=== PATIENT | female | born 1980 | race Caucasian/White ===

== ENCOUNTER 2020-03-30 09:29 | Outpatient (REF) | payer OTHER, SELFPAY ==
[2020-03-30 14:31] LABS: CT PCR NOT DETECTED (Not Detect.); NG PCR NOT DETECTED (Not Detect.)
[2020-03-31 13:20] LABS: BV Int Neg Control Negative (Negative); BV Int Pos Control Positive (Positive)
== END 2020-03-30 09:30 | disposition home or self-care (01) ==
LOC: HO.LAB 09:29
PROVIDERS: Visit Provider Obstetrics & Gynecology
DX: Z01.419 Encounter for gynecological examination (general) (routine) without abnormal findings (principal); Z11.8 Encounter for screening for other infectious and parasitic diseases; Z11.3 Encounter for screening for infections with a predominantly sexual mode of transmission
CPT/HCPCS: 87480; 87491; 87510; 87591; 87660

== ENCOUNTER 2021-03-02 10:53 | Outpatient (REF) | payer OTHER, SELFPAY ==
[2021-03-02 14:01] LABS: Appearance Urine HAZY; Color Urine YELLOW; Glucose Urine UA NEG (NEG); Leukocyte Esterase Urine NEG (NEG); Nitrite Urine NEG (NEG); PH 7.5 (5.0-8.0); Urine Blood TRACE (NEG); Urine Ketones NEG (NEG); Urine Protein NEG (NEG-TRACE)
[2021-03-02 14:06] LABS: Hematocrit 39.8 % (37.0-47.0); Hemoglobin 12.9 g/dl (12.0-16.0); Mean Corpuscular HGB Conc 32.4 g/dl (31.0-35.0); Mean Corpuscular Hemoglobin 27.6 pg (27.0-33.0); Mean Corpuscular Volume 85.2 fL (80.0-98.0); Mean Platelet Volume 9.9 fL (9.4-12.3); Platelet Count 341 X10*3/uL (160-400); Red Blood Count 4.67 X10*6/uL (4.20-5.50); Red Cell Distribution Width 14.8 % (11.0-16.0); White Blood Count 9.1 X10*3/uL (4.8-10.8)
[2021-03-02 14:12] LABS: Mucus Urine 2+ /LPF; Squamous Epithelial Cell Urine 1+ /LPF; WBC Urine 0 /HPF (0-4)
[2021-03-02 14:47] LABS: Alanine Aminotransferase 13 U/L (0-31); Albumin Level 4.4 g/dL (3.5-5.0); Alkaline Phosphatase 52 U/L (39-117); Anion Gap 11 (12-20); Aspartate Amino Transferase 19 U/L (5-31); Bilirubin Direct 0.2 mg/dL (0.0-0.5); Bilirubin Total 0.6 mg/dL (0.0-1.0); Blood Urea Nitrogen 13 mg/dL (9-16); Calcium 9.2 mg/dL (8.4-10.2); Carbon Dioxide 27 mmol/L (22-29); Chloride 107 mmol/L (96-108); Cholesterol 181 mg/dL; Estimated Glomerular Filt Rate > 60; Glucose Random 85 mg/dL (60-115); HDL Cholesterol 55 mg/dL; LDL Cholesterol Calculated 112 mg/dl; Potassium 3.9 mmol/L (3.3-5.1); Sodium 141 mmol/L (135-145); Total Protein 7.4 g/dL (6.5-8.0); Triglycerides 72 mg/dL
[2021-03-02 15:10] LABS: Thyroid Stimulating Hormone 1.23 uIU/mL (0.32-4.0)
== END 2021-03-02 10:54 | disposition home or self-care (01) ==
LOC: HO.HMGCLDS 10:53
PROVIDERS: PCP Internal Medicine; Visit Provider Internal Medicine
DX: F41.9 Anxiety disorder, unspecified (principal)
CPT/HCPCS: 36415; 80048; 80061; 80076; 81001; 81003; 84443; 85027

== ENCOUNTER 2021-03-31 09:01 | Outpatient (REF) | payer OTHER, SELFPAY ==
[2021-04-01 10:16] LABS: BV Int Neg Control Negative (Negative); BV Int Pos Control Positive (Positive)
== END 2021-03-31 09:02 | disposition home or self-care (01) ==
LOC: HO.LAB 09:01
PROVIDERS: PCP Internal Medicine; Visit Provider Advanced Practice Midwife
DX: Z01.411 Encounter for gynecological examination (general) (routine) with abnormal findings (principal); N89.8 Other specified noninflammatory disorders of vagina
CPT/HCPCS: 87480; 87510; 87660

== ENCOUNTER 2021-05-05 13:35 | Outpatient (REF) | payer OTHER, SELFPAY ==
--- NOTE | ~2021-05-05 | MM_ITS ---
EXAMINATION: MM SCREENING DIGITAL BREAST TOMOSYNTHESIS, BILATERAL CLINICAL INFORMATION: Screening. Asymptomatic. The lifetime risk of breast cancer based on the Tyrer-Cuzick Model is 15%. COMPARISON: Mammography: 01/09/2020, 01/02/2020, 03/15/2016, 07/30/2015 TECHNIQUE: Digital breast tomosynthesis is performed in both the craniocaudal and mediolateral oblique views along with computer-aided detection (CAD). Synthesized 2D images are generated from the tomosynthesis. FINDINGS: The breasts are heterogeneously dense, which may obscure small masses (ACR BI-RADS breast composition Category c). There are no significant masses, abnormal calcifications, or other abnormalities. There are scattered round and rim calcifications again seen. The axilla and skin contours are unremarkable. No developing density or architectural abnormality. No significant changes. MM/MM tomosynthesis screening BI IMPRESSION: No mammographic evidence of malignancy. ASSESSMENT: BI-RADS 2: Benign RECOMMENDATION: Routine annual mammography screening. This patient's information was entered into a reminder system with a target due date for their next mammogram.
== END 2021-05-05 13:36 | disposition home or self-care (01) ==
LOC: HO.MAMMO 13:35
PROVIDERS: Visit Provider Advanced Practice Midwife
DX: Z12.31 Encounter for screening mammogram for malignant neoplasm of breast (principal)
CPT/HCPCS: 77063; 77067

== ENCOUNTER 2021-08-17 08:47 | Outpatient (REF) | payer OTHER, SELFPAY ==
[2021-08-17 11:41] LABS: Appearance Urine HAZY; Color Urine YELLOW; Glucose Urine UA NEG (NEG); Leukocyte Esterase Urine NEG (NEG); Nitrite Urine NEG (NEG); UACC Culture Trigger NO; Urine Blood TRACE (NEG); Urine Ketones NEG (NEG); Urine Protein NEG (NEG-TRACE)
[2021-08-17 12:15] LABS: Alanine Aminotransferase 14 U/L (0-31); Albumin Level 3.7 g/dL (3.5-5.0); Alkaline Phosphatase 43 U/L (39-117); Anion Gap 10 (12-20); Aspartate Amino Transferase 18 U/L (5-31); Bilirubin Total 0.3 mg/dL (0.0-1.0); Blood Urea Nitrogen 10 mg/dL (9-16); Carbon Dioxide 27 mmol/L (22-29); Chloride 104 mmol/L (96-108); Cholesterol 182 mg/dL; Estimated Glomerular Filt Rate > 60; Glucose Fasting 94 mg/dL (60-99); HDL Cholesterol 52 mg/dL; LDL Cholesterol Calculated 117 mg/dl; Potassium 4.1 mmol/L (3.3-5.1); Sodium 137 mmol/L (135-145); Total Protein 6.5 g/dL (6.5-8.0); Triglycerides 65 mg/dL
[2021-08-17 12:17] LABS: TSH reflex Free T4 1.11 uIU/mL (0.32-4.0)
[2021-08-17 12:52] LABS: Amorphous Sediment Urine 2+ /LPF; Mucus Urine 1+ /LPF; Squamous Epithelial Cell Urine 1+ /LPF; WBC Urine 0 /HPF (0-4)
== END 2021-08-17 08:48 | disposition home or self-care (01) ==
LOC: HO.HMGCLDS 08:47
PROVIDERS: PCP Nurse Practitioner Family; Visit Provider Nurse Practitioner Family
DX: F41.9 Anxiety disorder, unspecified (principal)
CPT/HCPCS: 36415; 80053; 80061; 81001; 81003; 84443

== ENCOUNTER 2021-11-29 14:25 | Outpatient (REF) | payer OTHER, SELFPAY ==
[2021-11-30 17:12] LABS: CT PCR NOT DETECTED (Not Detect.); NG PCR NOT DETECTED (Not Detect.)
[2021-12-01 11:03] LABS: BV Int Neg Control Negative (Negative); BV Int Pos Control Positive (Positive)
== END 2021-11-29 14:26 | disposition home or self-care (01) ==
LOC: HO.LAB 14:25
PROVIDERS: Visit Provider Advanced Practice Midwife
DX: Z11.3 Encounter for screening for infections with a predominantly sexual mode of transmission (principal); N93.9 Abnormal uterine and vaginal bleeding, unspecified
CPT/HCPCS: 87480; 87491; 87510; 87591; 87660

== ENCOUNTER 2021-12-09 12:57 | Outpatient (REF) | payer OTHER, SELFPAY ==
--- NOTE | ~2021-12-09 | XR_ITS ---
EXAMINATION: XR FOOT, LEFT CLINICAL INFORMATION: Injury left foot COMPARISON: None TECHNIQUE: AP, lateral, and oblique views of the left foot. FINDINGS: There is a fracture at the base of the proximal phalanx first digit. Occurring along the medial aspect. Fracture line communicates with the MTP joint. Minimal distraction of the fracture fragment. Oblique in nature. Some spurring at the insertion of the plantar aponeuroses and Achilles on the calcaneus XR/XR foot LT min 3V IMPRESSION: Fracture minimally displaced at the base of the proximal phalanx medial aspect at the level the MTP joint first digit
== END 2021-12-09 12:58 | disposition home or self-care (01) ==
LOC: HO.HMGCX 12:57
PROVIDERS: PCP Nurse Practitioner Family; Visit Provider Internal Medicine
DX: S99.922A Unspecified injury of left foot, initial encounter (principal)
CPT/HCPCS: 73630

== ENCOUNTER 2022-01-13 15:53 | Outpatient (REF) | payer OTHER, SELFPAY | END 2022-01-13 15:54 | disposition home or self-care (01) | LOC: HO.US 15:53 | PROVIDERS: Visit Provider Advanced Practice Midwife | DX: Z13.89 Encounter for screening for other disorder (principal) ==

== ENCOUNTER 2022-06-22 08:31 | Outpatient (REF) | payer OTHER, SELFPAY ==
[2022-06-22 11:13] LABS: MANUAL DIFF FLAG NO
[2022-06-22 11:22] LABS: Basophils Absolute Auto 0.1 X10*3/uL (0.0-0.2); Basophils Percent Auto 0.9 % (0-2); Eosinophils Absolute Auto 0.1 X10*3/uL (0.0-0.4); Eosinophils Percent Auto 1.1 % (0-4); Hemoglobin 11.6 g/dl (12.0-16.0); Imm Gran Abs Auto 0.02 X10*3/uL (0.00-0.03); Imm Gran Pct Auto 0.2 % (0.0-0.4); Lymphocytes Absolute Auto 2.2 X10*3/uL (1.2-4.9); Lymphocytes Percent Auto 26.6 % (20-40); Mean Corpuscular HGB Conc 32.2 g/dl (31.0-35.0); Mean Corpuscular Hemoglobin 26.9 pg (27.0-33.0); Mean Corpuscular Volume 83.3 fL (80.0-98.0); Mean Platelet Volume 9.9 fL (9.4-12.3); Monocytes Absolute Auto 0.5 X10*3/uL (0.1-1.2); Monocytes Percent Auto 5.8 % (2-11); Neutrophils Absolute Auto 5.3 x10*3/uL (2.0-8.3); Neutrophils Percent Auto 65.4 % (45-73); Platelet Count 370 X10*3/uL (160-400); Red Blood Count 4.32 X10*6/uL (4.20-5.50); Red Cell Distribution Width 15.8 % (11.0-16.0); White Blood Count 8.2 X10*3/uL (4.8-10.8)
[2022-06-22 11:34] LABS: Appearance Urine Clear; Color Urine Yellow; Glucose Urine UA Negative (Negative); Leukocyte Esterase Urine Negative (Negative); Nitrite Urine Negative (Negative); PH 7.5 (5.0-9.0); Urine Blood Negative (Negative); Urine Ketones Negative (Negative); Urine Protein Negative (Neg-Trace)
[2022-06-22 11:50] LABS: Alanine Aminotransferase 17 U/L (0-31); Albumin Level 3.8 g/dL (3.5-5.0); Alkaline Phosphatase 47 U/L (39-117); Anion Gap 11 (12-20); Aspartate Amino Transferase 22 U/L (5-31); Bilirubin Total 0.3 mg/dL (0.0-1.0); Blood Urea Nitrogen 8 mg/dL (9-16); Calcium 8.7 mg/dL (8.4-10.2); Carbon Dioxide 27 mmol/L (22-29); Chloride 107 mmol/L (96-108); Cholesterol 199 mg/dL; Estimated Glomerular Filt Rate > 60; Glucose Fasting 101 mg/dL (60-99); HDL Cholesterol 56 mg/dL; LDL Cholesterol Calculated 131 mg/dl; Potassium 4.1 mmol/L (3.3-5.1); Sodium 141 mmol/L (135-145); Total Protein 6.5 g/dL (6.5-8.0); Triglycerides 60 mg/dL
[2022-06-22 11:53] LABS: TSH reflex Free T4 0.82 uIU/mL (0.32-4.0)
== END 2022-06-22 08:32 | disposition home or self-care (01) ==
LOC: HO.HMGCLDS 08:31
PROVIDERS: PCP Nurse Practitioner Family; Visit Provider Nurse Practitioner Family
DX: Z00.00 Encounter for general adult medical examination without abnormal findings (principal)
CPT/HCPCS: 36415; 80053; 80061; 81003; 84443; 85025

== ENCOUNTER 2022-10-07 08:31 | Outpatient (REF) | payer OTHER, SELFPAY ==
[2022-10-07 11:40] LABS: Baso%MD 0.6 %; Eos%MD 2.8 %; Hematocrit 35.7 % (37.0-47.0); Hemoglobin 11.5 g/dl (12.0-16.0); IG%MD 0.1 %; Immature Retic Fraction 11.9 % (3.0-15.9); Lymph%MD 28.8 %; Mean Corpuscular HGB Conc 32.2 g/dl (31.0-35.0); Mean Corpuscular Hemoglobin 27.1 pg (27.0-33.0); Mean Corpuscular Volume 84.2 fL (80.0-98.0); Mean Platelet Volume 9.8 fL (9.4-12.3); Mono%MD 5.7 %; Platelet Count 358 X10*3/uL (160-400); Red Blood Count 4.24 X10*6/uL (4.20-5.50); Red Cell Distribution Width 14.9 % (11.0-16.0); Retic HGB Equivalent 33.4 pg (30.0-35.0); Reticulocyte Percent 1.4 % (0.5-1.8); White Blood Count 7.9 X10*3/uL (4.8-10.8)
[2022-10-07 12:01] LABS: Iron 36 mcg/dL (30-160); Percent Iron Saturation 11 % (15-50); Total Iron Binding Capacity 326 mcg/dL (228-428); Unsaturated Iron Binding 290 ug/dL
[2022-10-07 12:34] LABS: Basophils Abs Manual 0.2 X10*3/uL (0.0-0.2); Basophils Percent Manual 2 % (0-2); Eosinophils Absolute Manual 0.2 X10*3/uL (0.0-0.4); Eosinophils Percent Manual 2 % (0-4); Lymphocytes Absolute Manual 2.3 X10*3/uL (1.2-4.9); Lymphocytes Percent Manual 29 % (20-40); Monocytes Absolute Manual 0.4 X10*3/uL (0.1-1.2); Monocytes Percent Manual 5 % (2-11); Neutrophils Percent Manual 62 % (45-73)
[2022-10-07 12:36] LABS: Band Neutrophils Percent 0 % (3-5); Neutrophils Absolute Manual 4.9 X10*3/uL (2.0-8.3); Platelet Estimate NORMAL (NORMAL); Platelet Morphology Comment NORMAL; RBC Morphology NORMAL
[2022-10-07 12:45] LABS: Ferritin 12 ng/mL (10-250); Folate 8.9 ng/mL (> or = 4.0); Vitamin B12 603 pg/mL (200-900)
== END 2022-10-07 08:32 | disposition home or self-care (01) ==
LOC: HO.HMGCLDS 08:31
PROVIDERS: PCP Nurse Practitioner Family; Visit Provider Nurse Practitioner Family
DX: D64.9 Anemia, unspecified (principal)
CPT/HCPCS: 36415; 82607; 82728; 82746; 83540; 85007; 85027; 85045

== ENCOUNTER 2023-08-01 11:30 | Outpatient (AMB) | payer OTHER, SELFPAY ==
[2023-08-01 11:54] VITALS: BP 120/76; PULSE 83; TEMP 36.7; O2SAT 96; BMI 25.6
--- NOTE | 2023-08-01 11:54 | AM.OFFWIN_ITS ---
Intake Vital Signs 08/01/23 11:54 Height 5 ft 5 in Weight 154 lb BMI 25.6 BP 120/76 Blood Pressure Location Lt brachial Position Sitting Pulse 83 Pulse Source Pulse Oximeter Temp 98.1 F Temp Source Temporal Artery Scan Pulse Oximetry (%) 96 Oxygen Delivery Method Room Air Intake Visit Reasons: EP Stomach pain Intake Note: pt is here today for stomach pain started 1 month ago Patient Tobacco Use Status: Never used Tobacco Allergies No Known Allergies Allergy (Verified 08/01/23 11:57) Medication List - Last Reconciled 08/01/23 by HYACINTH Lantigua escitalopram oxalate 10 mg PO DAILY 90 days Do you need a note to return to daycare/school/sports/work: Yes HPI HPI Comments History of Present Illness Details 42-year-old female presents today compla ining of dysuria lower abdominal pain, increasing stress and fatigue. Her appointment with the PCP was postponed and she is quite upset and anxious about the [facility] Medical History Generalized anxiety disorder Right ovarian cyst Surgical History History of left oophorectomy History of ovarian cystectomy Family History Family/Other Breast cancer genetic susceptibility Mother Rheumatoid arthritis Asthma Father Hypertension Family/Other Breast cancer Social History Housing: House Alcohol intake: never Patient Tobacco Use Status: Never used Tobacco e-Cigarette/Vaping Use: Never Used Second Hand Smoke Exposure: No service: No Current occupational status: employed Current occupation: [employer] Current occupational exposures/hazards: No Gender identity: Female Cognitive needs: No Hearing needs: No Vision needs: No Female Reproductive History Menstrual Age of Menarche: 10 Review of Systems Const Reports anorexia, Reports body aches, Reports chills, Reports headache(s) and Reports lethargy Eyes Reports no additional complaints ENT Reports Normal hearing present and Reports headache(s) Card Reports no additional complaints Neuro Reports Normal hearing present and Reports headache(s) Physical Exam Vital Signs: Last Vital Signs Temp 98.1 F 08/01/23 11:54 Pulse 83 08/01/23 11:54 BP 120/76 08/01/23 11:54 Pulse Ox 96 08/01/23 11:54 Oxygen Delivery Method Room Air 08/01/23 11:54 BMI result Body Mass Index 25.6 Const General: acute distress mild and anxious HEENT Head: Yes normal to inspection, Yes normocephalic and Yes atraumatic Ears: hearing grossly normal bilaterally, external ears normal, TM's normal bilaterally and EAC's normal General nose exam: Normal external nose present Face and sinus: Yes normal facial exam and Yes sinuses nontender Throat: Yes posterior oropharynx normal Resp Effort & Inspection: normal respiratory effort Auscultation: clear to auscultation bilaterally Cardio Rate: tachycardic Rhythm: regular rhythm GI Inspection: Yes normal to inspection Percussion: Yes normal to percussion Auscultation: normal bowel sounds Neuro Cranial nerves: Yes Normal hearing present Results AMB Test Urine AMB Test Urine Negative Last Edit by Yossi Blunt CMA on 08/01/23 12:35 AMB Urinalysis, Automated UA Leukoctes 0 Rambo/uL Last Edit by Yossi Blunt CMA on 08/01/23 12:36 UA Nitrite Negative Last Edit by Yossi Blunt CMA on 08/01/23 12:36 UA Urobilinogen 0.2 mg/dL Last Edit by Yossi Blunt CMA on 08/01/23 12 :36 UA Protein 15 mg/dL Last Edit by Yossi Blunt CMA on 08/01/23 12:36 UA pH 7.0 Last Edit by Yossi Blunt CMA on 08/01/23 12:36 UA Blood 80 Tyree/uL Last Edit by Yossi Blunt CMA on 08/01/23 12:36 UA Specific Peterson 1.015 Last Edit by Yossi Blunt CMA on 08/01/23 12:36 UA Ketone Negative Last Edit by Yossi Blunt CMA on 08/01/23 12:36 UA Bilirubin 0 mg/dL Last Edit by Yossi Blunt CMA on 08/01/23 12:36 UA Glucose 0 mg/dL Last Edit by Yossi Blunt CMA on 08/01/23 12:36 Results Reviewed Results Reviewed: Laboratory Last Values Urine pH (Auto) 7.0 08/01/23 12:34 Specific Peterson (Auto) 1.015 08/01/23 12:34 Urine Protein (Auto) 15 mg/dL 08/01/23 12:34 Glucose (UA)(Auto) 0 mg/dL 08/01/23 12:34 Urine Ketones (Auto) Negative 08/01/23 12:34 Urine Blood (Auto) 80 Tyree/uL 08/01/23 12:34 Urine Nitrite (Auto) Negative 08/01/23 12:34 Urine Bilirubin (Auto) 0 mg/dL 08/01/23 12:34 Urine Urobilinogen (Auto) 0.2 mg/dL 08/01/23 12:34 Leukocyte Esterase (Auto) 0 Rambo/uL 08/01/23 12:34 Tst Clinic Negative 08/01/23 12:34 Discussed the results of her urinalysis and with her symptom will treat her for UTI Assessment & Plan Assessment & Plan (1) Fatigue: Code(s): R53.83 - Other fatigue Plan: She will take cephalexin for the UTI. And also I encouraged her to follow up with her PCP and may consider CT scan of the abdomen for further follow up on her multiple complaints. Orders: Orders AMB Urinalysis Automated Today Z13.9 - Encounter for screening, unspecified AMB HCG Urine Test Today Z13.9 - Encounter for screening, unspecified Complete Blood Count Auto Diff Today R53.83 - Other fatigue Comprehensive Met. Panel Today R53.83 - Other fatigue Medications: New cephalexin 500 mg PO BID 14 caps 0RF 7 days Coding Level of Care Code Est Pt Level 3 (93769) Diagnoses Fatigue R53.83
== END 2023-08-01 13:16 | disposition home or self-care (01) ==
PROVIDERS: PCP Nurse Practitioner Family; Visit Provider Physician Assistant Medical
DX: R53.83 Other fatigue (principal); R30.0 Dysuria; Z32.02 Encounter for pregnancy test, result negative
CPT/HCPCS: 81003; 81025; 99213

== ENCOUNTER 2023-08-01 12:50 | Outpatient (REF) | payer OTHER, SELFPAY ==
[2023-08-01 16:20] LABS: MANUAL DIFF FLAG NO
[2023-08-01 16:30] LABS: Basophils Absolute Auto 0.1 X10*3/uL (0.0-0.2); Basophils Percent Auto 0.7 % (0-2); Eosinophils Absolute Auto 0.1 X10*3/uL (0.0-0.4); Eosinophils Percent Auto 0.7 % (0-4); Hematocrit 39.2 % (37.0-47.0); Hemoglobin 12.6 g/dl (12.0-16.0); Imm Gran Abs Auto 0.03 X10*3/uL (0.00-0.03); Imm Gran Pct Auto 0.4 % (0.0-0.4); Lymphocytes Absolute Auto 2.6 X10*3/uL (1.2-4.9); Mean Corpuscular HGB Conc 32.1 g/dl (31.0-35.0); Mean Corpuscular Hemoglobin 26.8 pg (27.0-33.0); Mean Corpuscular Volume 83.4 fL (80.0-98.0); Mean Platelet Volume 9.8 fL (9.4-12.3); Monocytes Percent Auto 12.1 % (2-11); Neutrophils Absolute Auto 4.3 x10*3/uL (2.0-8.3); Neutrophils Percent Auto 53.1 % (45-73); Platelet Count 356 X10*3/uL (160-400); Red Cell Distribution Width 15.9 % (11.0-16.0)
[2023-08-01 16:36] LABS: Alanine Aminotransferase 19 U/L (0-31); Albumin Level 4.1 g/dL (3.5-5.0); Alkaline Phosphatase 59 U/L (39-117); Anion Gap 11 (12-20); Aspartate Amino Transferase 23 U/L (5-31); Bilirubin Total 0.2 mg/dL (0.0-1.0); Blood Urea Nitrogen 7 mg/dL (9-16); Calcium 9.5 mg/dL (8.4-10.2); Carbon Dioxide 26 mmol/L (22-29); Chloride 109 mmol/L (96-108); Estimated Glomerular Filt Rate > 60; Glucose Random 99 mg/dL (60-115); Potassium 3.9 mmol/L (3.3-5.1); Sodium 142 mmol/L (135-145); Total Protein 7.8 g/dL (6.5-8.0)
== END 2023-08-01 12:51 | disposition home or self-care (01) ==
LOC: HO.HMGCLDS 12:50
PROVIDERS: PCP Nurse Practitioner Family; Visit Provider Physician Assistant Medical
DX: R53.83 Other fatigue (principal)
CPT/HCPCS: 36415; 80053; 85025

== ENCOUNTER 2023-08-24 12:28 | Outpatient (AMB) | payer OTHER, SELFPAY ==
--- NOTE | 2023-08-24 12:29 | MHC.PC.OV ---
Vital Signs 08/24/23 12:31 Height 5 ft 5 in Weight 157 lb BMI 26.1 BP 126/80 Blood Pressure Location Rt brachial Position Sitting Pulse 77 Pulse Source Pulse Oximeter Pulse Oximetry (%) 98 Oxygen Delivery Method Room Air Intake Visit Reasons: PE Intake Note: Patient here for physical exam. pt would like to talk about the way shes been feeling before getting her menstrual cycle, she states her anger gets really bad or shes crying. she also wanted to talk about fatigue as she is always tired. Pap: 2021 Mammo: 2021 Allergies No Known Allergies Allergy (Verified 08/24/23 12:41) Medication List - Last Reconciled 08/24/23 by SPIKE Vargas cephalexin 500 mg PO BID 7 days escitalopram oxalate 10 mg PO DAILY 90 days Tobacco use date assessed: 08/24/23 Dental Screening Dental Screen Date: 08/24/23 Did you have a dental visit in the last 12 months?: Yes Did you have a dental problem in the last 6 months where you did not have access to dental care?: No Was dental information given to patient?: Patient has dentist HPI PE HPI Details Pt is here for a PE. Will order labs. 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 Due for mammo, pt will schedule this. Pt has a family hx of early onset menopause, will order labs. Will order labs. Pt reports being in a bad mood and cranky a week before her period. She will discuss this more with her HUMAN RESOURCES COMMUNICATIONS MANAGER. [facility] Medical History Generalized anxiety disorder Right ovarian cyst Surgical History History of ovarian cystectomy History of left oophorectomy Family History Family/Other Breast cancer genetic susceptibility Mother Rheumatoid arthritis Asthma Father Hypertension Family/Other Breast cancer Social History Housing: House Alcohol intake: never Patient Tobacco Use Status: Never used Tobacco e-Cigarette/Vaping Use: Never Used Second Hand Smoke Exposure: No service: No Current occupational status: employed Current occupation: [employer] Current occupational exposures/hazards: No Gender identity: Female Cognitive needs: No Hearing needs: No Vision needs: No Female Reproductive History Menstrual Age of Menarche: 10 Questionnaire Thrive Questionnaire Date Thrive assessed: 06/07/22 AUDIT C Alcohol Use Questionnaire (AUDIT-C) 1. How often do you have a drink containing alcohol?: Never 3. How often do you have six or more drinks on one occasion?: Never Total Score: 0 Score Reviewed/Action Taken: No SAI-7 AMB Questionnaire SAI-7 Date SAI - 7 assessed: 06/07/22 Source: Developed by Drs. Brian Dangelo, Kassidy Tirado, Solo Qiu and colleagues, with an educational ken from [employer]. Review of Systems Const Denies chills and Denies fever(s) Eyes Denies blurry vision ENT Denies vertigo, Denies dizziness and Denies sore throat Card Denies chest pain at rest, Denies chest pain with activity, Denies diaphoresis, Denies dyspnea and Denies dyspnea on exertion Resp Denies cough, Denies dyspnea, Denies dyspnea on exertion and Denies wheezing GI Denies abdominal pain, Denies melena, Denies hematochezia, Denies constipation, Denies diarrhea and Denies loose stools Denies hematuria Musc Denies numbness and Denies tingling Skin/Breast Denies lesions Neuro Denies vertigo, Denies dizziness, Denies numbness and Denies tingling Psych Denies anxiety, Denies depression, Denies homicidal ideation, Denies suicidal ideation and Denies other (substance abuse) Aller/Immun Denies wheezing Physical exam (Primary Care) Vital Signs: Last Vital Signs Pulse 77 08/24/23 12:31 BP 126/80 08/24/23 12:31 Pulse Ox 98 08/24/23 12:31 Oxygen Delivery Method Room Air 08/24/23 12:31 BMI result Body Mass Index 26.1 Tobacco/Smoking Status: Tobacco use Status Tobacco use date assessed 08/24/23 08/24/23 12:35 Patient Tobacco Use Status Never used Tobacco 08/24/23 12:31 e-Cigarette/Vaping Use Never Used 08/24/23 12:31 Thrive Assessment: Date of Thrive Assessment Date Thrive assessed 06/07/22 08/24/23 12:31 Const General: cooperative Nutritional Appearance: well nourished Orientation/consciousness: patient oriented x3 HENMT Head: Yes normal to inspection, Yes normocephalic and Yes atraumatic Ears: TM's normal bilaterally Eyes General: appearance normal, both eyes and all related structures Alignment and Position: alignment normal and position normal Neck Neck: Yes normal visual inspection and Yes no lymphadenopathy Thyroid: Thyroid normal Resp Effort & Inspection: normal respiratory effort Auscultation: clear to auscultation bilaterally Cardio Rate: regular rate Rhythm: regular rhythm Heart sounds: S1 normal heart sound present, S2 normal heart sound present and no murmurs GI Palpation (GI): Soft to palpation and nontender Auscultation: normal bowel sounds Skin Rashes: no rashes Neuro General: patient oriented x3, moves all extremities, no focal motor deficits and deep tendon reflexes 2+ bilaterally Romberg Test: Negative Psych Appearance: grossly normal Mental Status: mental status grossly normal Speech and movement: Normal speech and movement present Affect: normal affect Attitude: cooperative Thought process: Normal thought process present Thought content: Normal thought content present Insight: Good insight present (Psych) Judgement: Good judgement present (Psych) Assessment and Plan Assessment & Plan (1) Physical exam: Code(s): Z00.00 - Encounter for general adult medical examination without abnormal findings Plan: Labs ordered (2) FH: early menopause: Code(s): Z83.49 - Family history of other endocrine, nutritional and metabolic diseases Plan: Labs ordered, will follow up with HUMAN RESOURCES COMMUNICATIONS MANAGER Plan The patient agreed to the use of a medical aide for this encounter. Scribed for SPIKE Joy by Naomi Teran medical aide, on 08/24/2023 at 12:35 EST. Orders: Orders Complete Blood Count Auto Diff Today Z00.00 - Encounter for general adult medical examination without abnormal findings Comprehensive [place]. Panel Fast Today Z00.00 - Encounter for general adult medical examination without abnormal findings TSH reflex Free T4 Today Z00.00 - Encounter for general adult medical examination without abnormal findings Lipid Panel Today Z00.00 - Encounter for general adult medical examination without abnormal findings UA CC w/rflx Micro + Cult Today Z00.00 - Encounter for general adult medical examination without abnormal findings Lutenizing Hormone Today Z83.49 - Family history of other endocrine, nutritional and metabolic diseases Follicle Stimulating Hormone Today Z83.49 - Family history of other endocrine, nutritional and metabolic diseases Estradiol Ultra Sensitive Today Z83.49 - Family history of other endocrine, nutritional and metabolic diseases Medications: Discontinued cephalexin Discontinued Reason: Doctor's Order 500 mg PO BID 7 days 14 caps 0RF Coding Level of Care Code Est Pt Prev Care 40-64y(25544) Diagnoses Physical exam Z00.00 FH: early menopause Z83.49
[2023-08-24 12:31] VITALS: BP 126/80; PULSE 77; O2SAT 98; BMI 26.1
== END 2023-08-24 12:52 | disposition home or self-care (01) ==
PROVIDERS: PCP Nurse Practitioner Family; Visit Provider Nurse Practitioner Family
DX: Z00.00 Encounter for general adult medical examination without abnormal findings (principal); Z83.49 Family history of other endocrine, nutritional and metabolic diseases
CPT/HCPCS: 99396

== ENCOUNTER 2023-09-07 15:20 | Outpatient (REF) | payer OTHER, SELFPAY ==
--- NOTE | ~2023-09-07 | MM_ITS ---
EXAMINATION: MM SCREENING DIGITAL BREAST TOMOSYNTHESIS, BILATERAL CLINICAL INFORMATION: Screening. Asymptomatic. COMPARISON: Mammography: This study is compared with prior exams dating back to 2016. TECHNIQUE: Digital breast tomosynthesis is performed in both the craniocaudal and mediolateral oblique views along with computer-aided detection (CAD). Synthesized 2D images are generated from the tomosynthesis. FINDINGS: The breasts are heterogeneously dense, which may obscure small masses (ACR BI-RADS breast composition Category c). There are no significant masses, abnormal calcifications, or other abnormalities. MM/MM tomosynthesis screening BI IMPRESSION: No mammographic evidence of malignancy. ASSESSMENT: BI-RADS BI-RADS 1 - Negative RECOMMENDATION: Routine annual mammography screening. 1 year F/U This examination should not preclude the clinical evaluation of a suspicious palpable abnormality. This patient's information was entered into a reminder system with a target due date for their next mammogram.
== END 2023-09-07 15:21 | disposition home or self-care (01) ==
LOC: HO.MAMMO 15:20
PROVIDERS: PCP Nurse Practitioner Family; Visit Provider Nurse Practitioner Family
DX: Z12.31 Encounter for screening mammogram for malignant neoplasm of breast (principal)
CPT/HCPCS: 77063; 77067

== ENCOUNTER → 2023-09-07 15:30 | Outpatient (BNV) | payer OTHER, SELFPAY | PROVIDERS: PCP Nurse Practitioner Family; Visit Provider Radiology Diagnostic Radiology | DX: Z12.31 Encounter for screening mammogram for malignant neoplasm of breast (principal) | CPT/HCPCS: 77063; 77067 ==

== ENCOUNTER 2023-12-18 11:18 | Outpatient (AMB) | payer SELFPAY ==
[2023-12-18 11:41] VITALS: BP 118/78; PULSE 67; TEMP 37.1; O2SAT 98; BMI 26.0
--- NOTE | 2023-12-18 11:41 | MHC.OFFWIV ---
Intake Vital Signs 12/18/23 11:41 Height 5 ft 5 in Weight 156 lb BMI 26.0 BP 118/78 Blood Pressure Location Rt brachial Position Sitting Pulse 67 Pulse Source Pulse Oximeter Temp 98.8 F Temp Source Oral Pulse Oximetry (%) 98 Oxygen Delivery Method Room Air Intake Visit Reasons: EP- LT eye sty, very irritated Intake Note: pt c/o sty LT eye x 2 weeks. Not improving Patient Tobacco Use Status: Never used Tobacco Allergies No Known Allergies Allergy (Verified 12/18/23 11:45) Do you need a note to return to daycare/school/sports/work: Yes HPI EP- LT eye sty, very irritated HPI Details This note is constructed using voice recognition software. While every effort has been made to ensure accuracy, special education instructor errors may have been included. The patient is a 43 year old female who presents to the clinic today with stye to her left lower eyelid for the last 2 weeks. She tried some [id number] moisturizing eyedrops which did not seem to help and she has been doing warm compresses a few times each day. She denies significant pain, though the area is uncomfortable, denies discharge and denies itch to the area. REPLACED BY [facility] Medical History Generalized anxiety disorder Right ovarian cyst Surgical History History of ovarian cystectomy History of left oophorectomy Family History Family/Other Breast cancer genetic susceptibility Mother Rheumatoid arthritis Asthma Father Hypertension Family/Other Breast cancer Social History Housing: House Alcohol intake: never Patient Tobacco Use Status: Never used Tobacco e-Cigarette/Vaping Use: Never Used Second Hand Smoke Exposure: No service: No Current occupational status: employed Current occupation: [employer] Current occupational exposures/hazards: No Gender identity: Female Cognitive needs: No Hearing needs: No Vision needs: No Female Reproductive History Menstrual Age of Menarche: 10 Review of Systems Const All systems reviewed & are unremarkable except as noted in HPI and below Physical Exam Vital Signs: Last Vital Signs Temp 98.8 F 12/18/23 11:41 Pulse 67 12/18/23 11:41 BP 118/78 12/18/23 11:41 Pulse Ox 98 12/18/23 11:41 Oxygen Delivery Method Room Air 12/18/23 11:41 BMI result Body Mass Index 26.0 Const General: cooperative, healthy appearing, comfortable, no acute distress and alert Orientation/consciousness: patient oriented x3 Limitations: no limitations Eyes Visual Green: normal visual green by confrontation Alignment and Position: alignment normal Eyelids: Yes eyelid abnormality (Hordeolum to left lower lid) Conjunctivae: conjunctivae normal Sclerae: sclerae normal Pupils: Equal, round and reactive pupils present EOM: EOMs intact bilaterally Neuro General: patient oriented x3 Cranial nerves: Yes Equal, round and reactive pupils present Psych Appearance: grossly normal Mental Status: mental status grossly normal Speech and movement: Normal speech and movement present Affect: normal affect Assessment & Plan Assessment & Plan (1) Hordeolum externum left lower eyelid: Code(s): H00.015 - Hordeolum externum left lower eyelid Plan: Advised ongoing use of warm wet compresses at least 4 times a day. Erythromycin ointment ordered to facilitate improvement. Advised follow up with worsening or failure to resolve. Plan See above for full details and plan. Medications: New erythromycin 0.5 inches ophthalmic (eye) TID 7 days 3.5 grams 0RF Coding Level of Care Code Est Pt Level 3 (37452) Diagnoses Hordeolum externum left lower eyelid H00.015
== END 2023-12-18 12:37 | disposition home or self-care (01) ==
PROVIDERS: PCP Nurse Practitioner Family; Visit Provider Registered Nurse
DX: H00.015 Hordeolum externum left lower eyelid (principal)
CPT/HCPCS: 99213

== ENCOUNTER 2024-04-10 11:02 | Outpatient (REF) | payer OTHER, SELFPAY ==
[2024-04-11 02:35] LABS: CT PCR NOT DETECTED (Not Detect.); NG PCR NOT DETECTED (Not Detect.)
[2024-04-11 09:06] LABS: Bacterial Vaginosis PCR POSITIVE (Negative); Candida Group PCR NOT DETECTED (Not Detect); Candida glab krusei PCR NOT DETECTED (Not Detect); Trichomonas vaginalis PCR NOT DETECTED (Not Detect)
== END 2024-04-10 11:03 | disposition home or self-care (01) ==
LOC: HO.LAB 11:02
PROVIDERS: PCP Nurse Practitioner Family; Visit Provider Advanced Practice Midwife
DX: N89.8 Other specified noninflammatory disorders of vagina (principal)
CPT/HCPCS: 0352U; 87491; 87591; 99202; 99459

== ENCOUNTER 2024-04-10 11:02 | Outpatient (AMB) | payer OTHER, SELFPAY ==
[2024-04-10 11:07] VITALS: BP 118/68; BMI 26.0
--- NOTE | 2024-04-10 11:07 | A.OFFVIS_ITS ---
Vital Signs 04/10/24 11:07 Height 5 ft 5 in Weight 156 lb BMI 26.0 BP 118/68 Intake Visit Reasons: vag discharge Enlisted Advisor Required: No Enlisted Advisor Services: Enlisted Advisor Present Information Interpreted: clinical only School Program Director: School Program Director Present Allergies No Known Allergies Allergy (Verified 04/10/24 11:08) Medication List - Last Reconciled 04/10/24 by Kinjal Villanueva CNM escitalopram oxalate 10 mg PO DAILY 90 days Is last menstrual period known: Yes Last menstrual period: 04/07/24 HPI HPI vag discharge: Details: Patient is here because she wants to check her vaginal discharge she has just been feeling like the discharge is uncomfortable to her and not normal she is now on day 4 of her period. But even so does not feel quite the same to her. Just wants to get checked she is sexually active with her they tend to use pull out method and have been safe she has a 15-year-old and 11-year-old, and is not planning any more childbearing at this. She thinks she can tell when she ovulates. 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 [facility] Medical History Generalized anxiety disorder Right ovarian cyst Surgical History History of ovarian cystectomy History of left oophorectomy Family History Family/Other Breast cancer genetic susceptibility Mother Rheumatoid arthritis Asthma Father Hypertension Family/Other Breast cancer Social History Housing: House Alcohol intake: never Patient Tobacco Use Status: Never used Tobacco e-Cigarette/Vaping Use: Never Used Second Hand Smoke Exposure: No service: No Current occupational status: employed Current occupation: [employer] Current occupational exposures/hazards: No Gender identity: Female Cognitive needs: No Hearing needs: No Vision needs: No Female Reproductive History Menstrual Age of Menarche: 10 Duration of menses: 3-5 days Date of last menstrual period: 04/07/24 control method: none Total pregnancies: 2 Full term: 2 History of abnormal pap smear: No (2020 neg.[facility] Physical Exam Other: Normal speculum exam vagina pink and moist with menses cervix pink and smooth no abnormal discharge appreciated. External Female Exam: normal external appearance and normal appearance of the urethra Speculum Exam - Vagina: normal appearance of the vagina and normal vaginal discharge (Patient has a normal appearing menses at this time.) Speculum Exam - Cervix: normal appearance of the cervix and Cervical os closed Assessment & Plan Assessment & Plan (1) Problematic vaginal discharge: Code(s): N89.8 - Other specified noninflammatory disorders of vagina Category: Medical Plan Testing done for gonorrhea chlamydia trichomoniasis Gardnerella and Lady. Patient is not on the portal but we will call her for any positive results of these particular test. Discussed that it is very common almost normal finding for there to be bacterial vaginosis but regardless if it were present she would be offered treatment if she decided she wanted it. She also thinks she is having some myra menopausal symptoms and she wants to make an appointment to alk about those and also to have her Pap smear in annual exam she will be making an appointment to discuss all those things. She is content with her particular pull out method of control at this time. Coding Level of Care Code New Pt Level 3 (08064) Diagnoses Problematic vaginal discharge N89.8
== END 2024-04-10 12:00 | disposition home or self-care (01) ==
PROVIDERS: PCP Nurse Practitioner Family; Visit Provider Advanced Practice Midwife
DX: N89.8 Other specified noninflammatory disorders of vagina (principal)
CPT/HCPCS: 99203

== ENCOUNTER → 2024-04-22 10:10 | Outpatient (BNVA) | payer OTHER, SELFPAY | PROVIDERS: PCP Nurse Practitioner Family; Visit Provider Advanced Practice Midwife ==

== ENCOUNTER 2024-08-26 15:04 | Outpatient (AMB) | payer OTHER, SELFPAY ==
--- NOTE | 2024-08-26 15:06 | A.OFFPC_ITS ---
Vital Signs 08/26/24 15:07 Height 5 ft 5 in Weight 156 lb BMI 26.0 BP 130/80 Blood Pressure Location Lt brachial Position Sitting Pulse 72 Pulse Source Pulse Oximeter Pulse Oximetry (%) 98 Oxygen Delivery Method Room Air Intake Visit Reasons: PE/needs to select PCP on insurance Restorative Coordinator Required: No Accompanied by: Self / Same As Patient Allergies No Known Allergies Allergy (Verified 08/26/24 16:36) Medication List - Last Reconciled 08/26/24 by ISAIAH Vargas- escitalopram oxalate 10 mg PO DAILY 90 days Tobacco use date assessed: 08/26/24 Dental Screening Dental Screen Date: 08/26/24 Did you have a dental visit in the last 12 months?: Yes Did you have a dental problem in the last 6 months where you did not have access to dental care?: No Was dental information given to patient?: Patient has dentist HPI HPI Comments History of Present Illness Details History of Present Illness The patient is a 43-year-old female presenting with chest discomfort. She experiences intermittent episodes of chest discomfort that began recently. The episodes are characterized by a sudden onset and resolution within seconds, with symptoms including a bounding pulse and increased heart rate. There is no identifiable pattern or precipitating factors, though the use of pre-workout supplements prior to exercise has been considered a possible factor, as discussed during this visit. This supplement use may be contributing to the reported arrhythmia-like symptoms. The patient maintains that her mammogram is current, though she is due for colon screening. 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 [employer] Social History - Regular exercise, augmented with pre-w orkout supplements Review of Systems - Cardiovascular: Reports chest discomfo rt and bounding pulse - Respiratory: Denies any breathing diff iculties -denies any cp, sob, n/v, diarrhea, SOB, SI or HI, issues Physical Exam General: Cooperative, healthy appearing, comfortable, no acute distress and well developed Orientation: Patient oriented x3 Limitations: No limitations Head: Normal to inspection Ears: Hearing grossly normal bilaterally Nose: Normal external nose present Face and sinus: Normal facial exam Eyes: Appearance normal, both eyes and all related structures Neck: Normal visual inspection and Yes full ROM Respiratory: Normal respiratory effort and able to speak in complete sentences. Clear to auscultation bilaterally Cardiovascular: Regular rate and rhythm. Normal S1 and S2. Systolic murmur noted to pulmonic region GI: Normal to inspection. Soft to palpation and nontender Skin: No rashes or lesions noted Neuro: Patient oriented x3 Extremities: Normal to inspection Results Plan I will conduct an electrocardiogram EKG) today for further assessment of the patient's chest discomfort. The patient has been advised to discontinue using pre-workout supplements due to their potential association with arrhythmias. Additional evaluations, including an echocardiogram and a stress test, are planned to assess cardiac function comprehensively. A referral for colorectal cancer screening will be provided, as the patient is currently due for this examination. Discussion Notes I discussed with the patient the possible correlation between her pre-workout supplement use and her symptoms of chest discomfort and arrhythmia-like presentation. I explained the plan to acquire an EKG today and emphasized the importance of discontinuing the use of the supplements given the risks of cardiac arrhythmias. We agreed to perform an echocardiogram and stress test for further cardiac evaluation. I also provided information on her overdue colorectal screening and planned appropriate referral. I advised the patient to visit the emergency department should her symptoms persist or worsen. Patient Instructions - Discontinue use of pre-workout supplem ents immediately. - Go to the ER if you have ongoing or wo rsening chest symptoms. - Follow-up for the referrals provided f or an echocardiogram, stress test, and colon screening. - Keep up with regular exercise while ad carlee to safety guidelines discussed. [facility] Medical History Generalized anxiety disorder Right ovarian cyst Surgical History History of ovarian cystectomy History of left oophorectomy Family History Family/Other Breast cancer genetic susceptibility Mother Rheumatoid arthritis Asthma Father Hypertension Family/Other Breast cancer Social History Housing: House Alcohol intake: never Patient Tobacco Use Status: Never used Tobacco e-Cigarette/Vaping Use: Never Used Second Hand Smoke Exposure: No service: No Current occupational status: employed Current occupation: [employer] Current occupational exposures/hazards: No Gender identity: Female Cognitive needs: No Hearing needs: No Vision needs: No Female Reproductive History Menstrual Age of Menarche: 10 Questionnaire PHQ-9 Over the last 2 weeks, how often have you been bothered by any of the following problems? 1. Little interest or pleasure in doing things: nearly every day 2. Feeling down, depressed, or hopeless: nearly every day 3. Trouble falling or staying asleep, or sleeping too much: nearly every day 4. Feeling tired or having little energy: nearly every day 5. Poor appetite or overeating: more than half the days 6. Feeling bad about yourself - or that you are a failure or have let yourself or your family down: several days 7. Trouble concentrating on things, such as reading the newspaper or watching television: several days 8. Moving or speaking so slowly that other people could have noticed. Or the opposite - being so fidgety or restless that you have been moving around a lot more than usual: several days 9. Thoughts that you would be better off or of hurting yourself in some way: not at all Total score: 17 Depression Screening Interpretation: Positive Depression Screening Done: Yes 97953 - PHQ-9 Billing: Yes Source: Developed by Drs. Brian Dangelo, Kassidy Tirado, Solo Qiu and colleagues, with an educational ken from [employer]. Thrive Questionnaire Date Thrive assessed: 08/26/24 I am a: Patient What is your living situation today?: I have a steady place to live Within the past 12 months, did the food you bought not last and you didn't have the money to get more?: Never true Within the past 12 months, did you worry whether your food would run out before you got money to buy more?: Sometimes True Do you have trouble paying for medicines?: No Do you have trouble getting transportation to medical appointments?: No Do you have trouble paying your heating and electricity bill?: No Do you have trouble taking care of your child, family member or friend?: No Do you have trouble with day-to-day activities such as bathing, preparing meals, shopping, managing finances, etc.?: No Are you currently unemployed and looking for a job?: No Are you interested in more education?: No Please select the resources that you would like help with: None Currently or been in a relationship where the following occur: No concerns reported THRIVE Score: 1 AUDIT C Alcohol Use Questionnaire (AUDIT-C) 1. How often do you have a drink containing alcohol?: Monthly or less 2. How many drinks containing alcohol do you have on a typical day when you are drinking?: 1 or 2 3. How often do you have six or more drinks on one occasion?: Never Total Score: 1 Score Reviewed/Action Taken: Yes SAI-7 AMB Questionnaire SAI-7 Date SAI - 7 assessed: 08/26/24 Feeling nervous, anxious, or on edge: 2 = More than half the days Not being able to stop or control worryin = More than half the days Worrying too much about different things: 2 = More than half the days Trouble relaxin = Several days Being so restless that it is hard to sit still: 0 = Not at all Becoming easily annoyed or irritable: 3 = Nearly every day Feeling afraid as if something awful might happen: 2 = More than half the days Total SAI-7 score (0-4 normal; 5-9 mild; 10-14 moderate; 15-21 severe): 12 Source: Developed by Drs. Brian Dangelo, Kassidy Tirado, Solo Qiu and colleagues, with an educational ken from [employer]. SAI-7 Assessment Billing SAI-7 Assessment Tool: SAI-7 Assessment 72554 Physical exam (Primary Care) Vital Signs: Last Vital Signs Pulse 72 08/26/24 15:07 BP 130/80 08/26/24 15:07 Pulse Ox 98 08/26/24 15:07 Oxygen Delivery Method Room Air 08/26/24 15:07 BMI result Body Mass Index 26.0 Tobacco/Smoking Status: Tobacco use Status Tobacco use date assessed 08/26/24 08/26/24 15:08 Patient Tobacco Use Status Never used Tobacco 08/26/24 15:08 e-Cigarette/Vaping Use Never Used 08/26/24 15:08 PHQ-9: PHQ-9 Score PHQ-9: Total score 17 08/26/24 15:18 Depression Screening Interpretation: Positive Thrive Assessment: Date of Thrive Assessment Date Thrive assessed 08/26/24 08/26/24 15:08 Currently or been in a relationship where the following occur: No concerns reported Coding Level of Care Code Est Pt Prev Care 40-64y(98996) Diagnoses Physical exam Z00.00 Chest discomfort R07.89 Fatigue R53.83 FH: early menopause Z83.49 Systolic murmur R01.1 Screening for colon cancer Z12.11 Additional Codes SAI-7 Assessment Billing - SAI-7 Assessment Tool: SAI-7 Assessment 01483 ([id number]) PHQ-9 - 45240 - PHQ-9 Billing: Yes ([id number]) Assessment & Plan Assessment & Plan (1) Physical exam: Code(s): Z00.00 - Encounter for general adult medical examination without abnormal findings Category: Medical (2) Chest discomfort: Code(s): R07.89 - Other chest pain Category: Medical (3) Fatigue: Code(s): R53.83 - Other fatigue Category: Medical (4) FH: early menopause: Code(s): Z83.49 - Family history of other endocrine, nutritional and metabolic diseases Category: Medical (5) Systolic murmur: Code(s): R01.1 - Cardiac murmur, unspecified Category: Medical (6) Screening for colon cancer: Code(s): Z12.11 - Encounter for screening for malignant neoplasm of colon Category: Medical (7) Fatigue: Code(s): R53.83 - Other fatigue Category: Medical Plan . Orders: Orders TSH reflex Free T4 Today Z00.00 - Encounter for general adult medical examination without abnormal findings UA CC w/rflx Micro + Cult Today Z00.00 - Encounter for general adult medical examination without abnormal findings IRON PROFILE Today R53.83 - Other fatigue, Z83.49 - Family history of other endocrine, nutritional and metabolic diseases Ferritin Today R53.83 - Other fatigue, Z83.49 - Family history of other endocrine, nutritional and metabolic diseases Lutenizing Hormone Today R53.83 - Other fatigue, Z83.49 - Family history of other endocrine, nutritional and metabolic diseases Estrogen Today R53.83 - Other fatigue, Z83.49 - Family history of other endocrine, nutritional and metabolic diseases CA stress test Today R07.89 - Other chest pain Tick-borne Disease Molecular Today R53.83 - Other fatigue Complete Blood Count Auto Diff Today Z00.00 - Encounter for general adult medical examination without abnormal findings Comprehensive [place]. Panel Fast Today Z00.00 - Encounter for general adult medical examination without abnormal findings Lipid Panel Today Z00.00 - Encounter for general adult medical examination without abnormal findings AMB EKG-In Office Today R07.89 - Other chest pain Vitamin B12 and Folate Today R53.83 - Other fatigue, Z83.49 - Family history of other endocrine, nutritional and metabolic diseases Follicle Stimulating Hormone Today R53.83 - Other fatigue, Z83.49 - Family history of other endocrine, nutritional and metabolic diseases CA echo transthoracic complete Today R01.1 - Cardiac murmur, unspecified, R07.89 - Other chest pain Lyme IgG/IgM w/reflex to WB Today R53.83 - Other fatigue Referrals Gastroenterology Referral Z12.11 - Encounter for screening for malignant neoplasm of colon
[2024-08-26 15:07] VITALS: BP 130/80; PULSE 72; O2SAT 98; BMI 26.0
== END 2024-08-26 16:34 | disposition home or self-care (01) ==
LOC: HO.HMCC 15:05
PROVIDERS: PCP Nurse Practitioner Family; Visit Provider Nurse Practitioner Family
DX: Z00.00 Encounter for general adult medical examination without abnormal findings (principal); R07.89 Other chest pain; R53.83 Other fatigue; Z83.49 Family history of other endocrine, nutritional and metabolic diseases; R01.1 Cardiac murmur, unspecified; Z12.11 Encounter for screening for malignant neoplasm of colon

== ENCOUNTER → 2024-08-26 15:04 | Outpatient (BNVA) | payer OTHER, SELFPAY | PROVIDERS: PCP Nurse Practitioner Family; Visit Provider Nurse Practitioner Family | DX: Z00.00 Encounter for general adult medical examination without abnormal findings (principal); R07.89 Other chest pain; R53.83 Other fatigue; R01.1 Cardiac murmur, unspecified; Z83.49 Family history of other endocrine, nutritional and metabolic diseases | CPT/HCPCS: 96127; 99396 ==

== ENCOUNTER 2024-08-27 08:55 | Outpatient (REF) | payer OTHER, SELFPAY ==
[2024-08-27 09:59] LABS: MANUAL DIFF FLAG NO
[2024-08-27 10:14] LABS: Basophils Percent Auto 0.5 % (0-2); Eosinophils Absolute Auto 0.1 X10*3/uL (0.0-0.4); Eosinophils Percent Auto 1.2 % (0-4); Hematocrit 37.4 % (37.0-47.0); Hemoglobin 12.3 g/dl (12.0-16.0); Imm Gran Abs Auto 0.03 X10*3/uL (0.00-0.03); Imm Gran Pct Auto 0.4 % (0.0-0.4); Lymphocytes Absolute Auto 2.1 X10*3/uL (1.2-4.9); Lymphocytes Percent Auto 25.1 % (20-40); Mean Corpuscular HGB Conc 32.9 g/dl (31.0-35.0); Mean Corpuscular Hemoglobin 26.8 pg (27.0-33.0); Mean Corpuscular Volume 81.5 fL (80.0-98.0); Mean Platelet Volume 10.2 fL (9.4-12.3); Monocytes Absolute Auto 0.5 X10*3/uL (0.1-1.2); Monocytes Percent Auto 6.1 % (2-11); Neutrophils Absolute Auto 5.6 x10*3/uL (2.0-8.3); Neutrophils Percent Auto 66.7 % (45-73); Platelet Count 337 X10*3/uL (160-400); Red Blood Count 4.59 X10*6/uL (4.20-5.50); Red Cell Distribution Width 15.9 % (11.0-16.0); White Blood Count 8.3 X10*3/uL (4.8-10.8)
[2024-08-27 11:08] LABS: Appearance Urine Clear; Color Urine Yellow; Glucose Urine UA Negative (Negative); Leukocyte Esterase Urine Negative (Negative); Nitrite Urine Negative (Negative); UMIC TRIGGER UACC YES; Urine Blood Trace (Negative); Urine Ketones Negative (Negative); Urine Protein Negative (Neg-Trace)
[2024-08-27 11:11] LABS: Bacteria Urine None Seen (None Seen); Hyaline Casts Urine 0-2 /LPF (0-2); Squamous Epithelial Cell Urine 0-2 /HPF (0-2); WBC Urine 0-5 /HPF (0-5)
[2024-08-27 11:38] LABS: Alanine Aminotransferase 23 U/L (0-31); Albumin Level 3.9 g/dL (3.5-5.0); Alkaline Phosphatase 53 U/L (39-117); Anion Gap 11 (12-20); Aspartate Amino Transferase 26 U/L (5-31); Bilirubin Total 0.5 mg/dL (0.0-1.0); Blood Urea Nitrogen 8 mg/dL (9-16); Calcium 8.7 mg/dL (8.4-10.2); Carbon Dioxide 24 mmol/L (22-29); Chloride 109 mmol/L (96-108); Cholesterol 204 mg/dL (<200); Estimated Glomerular Filt Rate > 60; Glucose Fasting 90 mg/dL (60-99); HDL Cholesterol 52 mg/dL (>40); Iron 112 mcg/dL (30-160); LDL Cholesterol Calculated 136 mg/dL (<100); Percent Iron Saturation 34 % (15-50); Potassium 3.7 mmol/L (3.3-5.1); Sodium 140 mmol/L (135-145); Total Iron Binding Capacity 328 mcg/dL (228-428); Triglycerides 83 mg/dL (<150); Unsaturated Iron Binding 216 ug/dL
[2024-08-27 12:01] LABS: Ferritin 10 ng/mL (10-250); TSH reflex Free T4 1.31 uIU/mL (0.32-4.0)
[2024-08-27 12:11] LABS: Folate 6.7 ng/mL (> or = 4.0); Vitamin B12 368 pg/mL (200-900)
[2024-08-28 05:35] LABS: Follicle Stimulating Hormone 21.2 mIU/mL; Lutenizing Hormone 26.9 mIU/mL
[2024-08-28 13:13] LABS: Lyme Abs Screen <0.90 index
[2024-08-28 20:28] LABS: A. Phagocytphilium DNA,RT-PCR NOT DETECTED (NOT DETECTED); Babesia Microti DNA, RT-PCR NOT DETECTED (NOT DETECTED); Borrelia Miyamotoi,DNA RT-PCR NOT DETECTED (NOT DETECTED); E.Chaffeensis DNA RT-PCR NOT DETECTED (NOT DETECTED); Lyme(Borrelia ssp)DNA RT-PCR NOT DETECTED (NOT DETECTED)
[2024-08-31 18:23] LABS: Estrogen 353 pg/mL
== END 2024-08-27 08:56 | disposition home or self-care (01) ==
LOC: HO.HMGCLDS 08:55
PROVIDERS: PCP Nurse Practitioner Family; Visit Provider Nurse Practitioner Family
DX: Z00.00 Encounter for general adult medical examination without abnormal findings (principal); Z83.49 Family history of other endocrine, nutritional and metabolic diseases; R53.83 Other fatigue
CPT/HCPCS: 36415; 80053; 80061; 81001; 82607; 82672; 82728; 82746; 83001; 83002; 83540; 84443; 85025; 86617; 86618; 87468; 87469; 87478; 87484; 87798

== ENCOUNTER 2024-09-12 15:19 | Outpatient (REF) | payer OTHER, SELFPAY | END 2024-09-12 15:20 | disposition home or self-care (01) | LOC: HO.MAMMO 15:19 | PROVIDERS: PCP Nurse Practitioner Family; Visit Provider Nurse Practitioner Family | DX: Z12.31 Encounter for screening mammogram for malignant neoplasm of breast (principal) | CPT/HCPCS: 77063; 77067 ==

== ENCOUNTER → 2024-09-12 15:30 | Outpatient (BNV) | payer OTHER, SELFPAY | PROVIDERS: PCP Nurse Practitioner Family; Visit Provider Internal Medicine | DX: Z12.31 Encounter for screening mammogram for malignant neoplasm of breast (principal) | CPT/HCPCS: 77063; 77067 ==

== ENCOUNTER 2024-09-30 10:27 | Outpatient (REF) | payer OTHER, SELFPAY ==
--- NOTE | ~2024-09-30 | US_ITS ---
EXAMINATION: MM DIAGNOSTIC DIGITAL BREAST TOMOSYNTHESIS, RIGHT Right breast ultrasound. CLINICAL INFORMATION: Call back from screening for asymmetry in the superior right breast on MLO view. COMPARISON: Mammography: Comparison is made with prior's on PACS. TECHNIQUE: Digital breast tomosynthesis is performed in both the craniocaudal and mediolateral oblique views along with computer-aided detection (CAD). Synthesized 2D images are generated from the tomosynthesis. FINDINGS: The breasts are heterogeneously dense, which may obscure small masses (ACR BI-RADS breast composition Category c). The previously seen asymmetry in the superior breast on MLO view does not persist on additional imaging projections and likely represented overlapping breast tissue. There are no significant masses, abnormal calcifications, or other abnormalities. Targeted color Doppler ultrasound scanning in the upper outer quadrant from 9-1 o'clock demonstrates multiple simple minimally complicated cysts. No suspicious sonographic abnormal finding is seen. US/US breast RT limited mamm only IMPRESSION: Multiple simple and minimally complicated cyst in the upper outer quadrant on ultrasound. Benign. ASSESSMENT: BI-RADS BI-RADS 2 - Benign Findings RECOMMENDATION: 1 year F/U Results were provided to the patient at time of visit by the technologist. This patient's information was entered into a reminder system with a target due date for their next mammogram. Electronically signed by: Cuca El DO 09/30/2024 11:43 AM EDT
--- OUTSIDE RECORDS SUMMARY | 2024-09-30 11:32 | XMS_ITS | Clinical Summary ---
Author Organization [address] [facility] Address [address] [place] [address] Phone Care Team Providers Care Household Manager Name Role Phone Alla Damon MD Primary Care Provider [phone] Encounters Date Type Department Care Team Description 09/20/2024 9:45 AM EDT Consult [facility] [address] [phone] Kory Sage DPM Nondisplaced spiral fracture of shaft of right fibula, initial encounter for closed fracture from Last 3 Months Social History Tobacco Use Types Packs/Day Years Used Date Smoking Tobacco: Never Assessed Comments Unknown Sex and Gender Information Value Date Recorded Sex Assigned at Not on file Legal Sex Female 12:13 PM EDT Gender Identity Not on file Sexual Orientation Not on file Plan of Treatment Upcoming Encounters Date Type Department Care Team ([facility] st Contact Info) Description 11/20/2024 8:30 AM EDT Office Visit [facility] [address] [phone] Kory Sage DPM [address] [address] Health Maintenance Due Date Last Done Comments Breast Cancer Screening 1978 Hepatitis B Vaccines (1 of 3 - 19+ 3-dose series) 1997 Cervical Cancer Screening: P ap Smear 10/31/1999 DTaP,Tdap,and Td Vaccines (2 - Td or Tdap) 06/29/2022 06/29/2012 COVID-19 Vaccine (2023-2 5 season) 2023 Colorectal Cancer Screening: Colonoscopy 09/17/2024 Depression Screening 09/17/2024 HIV Screening 09/17/2024 Hepatitis C Screening 09/17/2024 Social Influencers of Health Screening 09/17/2024 Influenza Vaccine (Season Ended) 2024 HIB Vaccines Aged Out No longer eligi ble based on patient's age to complete this topic HPV Vaccines Aged Out No longer eligi ble based on patient's age to complete this topic Hepatitis A Vaccines Aged Out No long er eligible based on patient's age to complete this topic IPV Vaccines Aged Out No longer eligi ble based on patient's age to complete this topic MMR Vaccines Aged Out No longer eligi ble based on patient's age to complete this topic Meningococcal ACWY Vaccine Aged Out N o longer eligible based on patient's age to complete this topic Meningococcal B Vaccine Aged Out No l onger eligible based on patient's age to complete this topic Pneumococcal Vaccine: Pediat rics (0 to 5 Years) and At-Risk Patients (6 to 64 Years) Aged Out No longer eligi ble based on patient's age to complete this topic RSV Immunization Patients Un da[place] 20 months Aged Out No longer eligible b ased on patient's age to complete this topic Varicella Vaccines Aged Out No longer eligible based on patient's age to complete this topic Procedures Procedure Name Priority Date/Time Associated Diagnosis Comments XR ANKLE 3+ VIEWS RIGHT Routine 09/20/2024 10:06 AM EDT Nondisplaced spiral fracture of shaft of right fibula, initial encounter for closed fracture from Last 3 Months Results * XR Ankle 3+ Views Right (09/20/2024 10:06 AM EDT) Anatomical Region Laterality Modality Lower Extremities, Ankle Right Compute d Radiography Narrative 09/20/2024 11:46 AM EDT Right ankle 3 views AP views consistent with appropriate medial clear space with a normal alignment and no increased clear space of the medial gutter appropriate tib-fib overlap no signs of syndesmotic instability or talar tilting Oblique views consistent with appropriate alignment of the fibula with no signs of displacement or fracture Lateral view is also consistent with appropriate on the fibula no displacement of fracture of fibular fracture Gamaliel Caldwell us Kory Sage DPM IMG XR PROCEDURES Final R esult from Last 3 Months Insurance [facility] Care Teams Household Manager Relationship Specialty Start Date End Date Alla Damon MD [address] [place] [address] [place] [id number] PCP - General Internal Medicine 09/17/24
== END 2024-09-30 10:28 | disposition home or self-care (01) ==
LOC: HO.MAMMO 10:27
PROVIDERS: PCP Nurse Practitioner Family; Visit Provider Nurse Practitioner Family
DX: N60.01 Solitary cyst of right breast (principal); N64.89 Other specified disorders of breast
CPT/HCPCS: 76642; 77061; 77065

== ENCOUNTER → 2024-09-30 11:00 | Outpatient (BNV) | payer OTHER, SELFPAY | PROVIDERS: PCP Nurse Practitioner Family; Visit Provider Internal Medicine | DX: R42 Dizziness and giddiness (principal) | CPT/HCPCS: 70496; 70498; 76642; 77061; 77065 ==

== ENCOUNTER 2024-09-30 11:58 | Emergency (ER) | payer OTHER, SELFPAY ==
--- NOTE | ~2024-09-30 | CT_ITS ---
CLINICAL HISTORY: lightheaded dizzy w position changes CT HEAD WITHOUT CONTRAST. CT ANGIOGRAPHY HEAD AND NECK WITH CONTRAST. 3D POSTPROCESSING. Comparison: None Findings: HEAD CT: No acute intracranial hemorrhage, extra-axial fluid collection, hydrocephalus or midline shift. No significant atrophy-like change or white matter disease. The visualized paranasal sinuses and mastoid air cells are normal. The orbits are unremarkable. No skull fracture. HEAD AND NECK CTA: Aortic arch and cervical great vessels are patent. Intracranial arteries are patent. No aneurysm, dissection, or occlusion. No abnormal intracranial enhancement. Patent dural venous sinuses. The visualized thyroid gland is unremarkable. No cervical mass or fluid collection. Lung apices clear. No acute fracture. IMPRESSION: 1. No acute intracranial process. 2. Patent CTA head and neck. This document has been electronically signed by: Emily Phillip DO on 09/30/2024 18:58:27
[2024-09-30 12:19] VITALS: BP 147/77; PULSE 76; RESP 18; TEMP 36.6; O2SAT 100; BMI 22.6
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
--- NOTE | 2024-09-30 12:25 | ECG_ITS ---
Test Reason : dizziness Blood Pressure : */* mmHG Vent. Rate : 68 BPM Atrial Rate : 68 BPM P-R Int : 96 ms QRS Dur : 74 ms QT Int : 400 ms P-R-T Axes : 38 24 13 degrees QTcB Int : 425 ms Sinus rhythm with short AK Otherwise normal ECG No previous ECGs available Referred By: Glenny Kay Electronically Signed By: ANY MCGRATH
[2024-09-30 12:54] LABS: MANUAL DIFF FLAG NO
[2024-09-30 12:55] LABS: Basophils Absolute Auto 0.1 X10*3/uL (0.0-0.2); Basophils Percent Auto 0.7 % (0-2); Eosinophils Absolute Auto 0.1 X10*3/uL (0.0-0.4); Eosinophils Percent Auto 0.6 % (0-4); Hematocrit 35.5 % (37.0-47.0); Hemoglobin 12.1 g/dl (12.0-16.0); Imm Gran Abs Auto 0.03 X10*3/uL (0.00-0.03); Imm Gran Pct Auto 0.3 % (0.0-0.4); Lymphocytes Absolute Auto 2.5 X10*3/uL (1.2-4.9); Lymphocytes Percent Auto 24.4 % (20-40); Mean Corpuscular HGB Conc 34.1 g/dl (31.0-35.0); Mean Corpuscular Hemoglobin 27.6 pg (27.0-33.0); Mean Corpuscular Volume 80.9 fL (80.0-98.0); Mean Platelet Volume 9.4 fL (9.4-12.3); Monocytes Absolute Auto 0.4 X10*3/uL (0.1-1.2); Monocytes Percent Auto 4.3 % (2-11); Neutrophils Absolute Auto 7.2 x10*3/uL (2.0-8.3); Neutrophils Percent Auto 69.7 % (45-73); Platelet Count 329 X10*3/uL (160-400); Red Blood Count 4.39 X10*6/uL (4.20-5.50); White Blood Count 10.3 X10*3/uL (4.8-10.8)
[2024-09-30 13:22] LABS: Alanine Aminotransferase 16 U/L (0-31); Alkaline Phosphatase 59 U/L (39-117); Anion Gap 12 (12-20); Aspartate Amino Transferase 24 U/L (5-31); Bilirubin Direct 0.1 mg/dL (0.0-0.5); Bilirubin Total 0.3 mg/dL (0.0-1.0); Blood Urea Nitrogen 17 mg/dL (9-16); Carbon Dioxide 25 mmol/L (22-29); Chloride 110 mmol/L (96-108); Creatinine Clr Calc Pharmacy 83.1; Estimated Glomerular Filt Rate > 60; Glucose Random 125 mg/dL (60-115); Magnesium 1.9 mg/dL (1.6-2.6); Potassium 3.8 mmol/L (3.3-5.1); Sodium 143 mmol/L (135-145)
[2024-09-30 13:27] LABS: HCG Quantitative < 2 mIU/mL
[2024-09-30 13:28] LABS: Troponin-I High Sensitivity < 2.7 ng/L (<3.5-17.0)
[2024-09-30 13:36] LABS: Influenza A PCR NEGATIVE (Negative); Influenza B PCR NEGATIVE (Negative); Resp Syncy Virus RNA Qual PCR NEGATIVE (Negative); SARS COV2 PCR INHOUSE NEGATIVE (Negative)
[2024-09-30 14:48] LABS: Appearance Urine Clear; Color Urine Yellow; Glucose Urine UA Negative (Negative); Leukocyte Esterase Urine Trace (Negative); Nitrite Urine Negative (Negative); Specific Gravity - Urine >= 1.030 (1.005-1.025); UMIC TRIGGER UACC YES; Urine Blood Large (3+) (Negative); Urine Ketones Trace mg/dL (Negative); Urine Protein Trace mg/dL (Neg-Trace)
[2024-09-30 14:53] LABS: Bacteria Urine Trace (None Seen); Hyaline Casts Urine 0-2 /LPF (0-2); RBC Urine >20 /HPF (0-2); UACC Culture Trigger YES
[2024-09-30 16:55] VITALS: BP 142/74; PULSE 78; RESP 18; TEMP 36.6; O2SAT 99
[2024-09-30] MEDS: iohexoL 350 MG/ML 100 ML INFUS..BTL IV (17:54)
[2024-09-30 19:09] VITALS: BP 147/81; PULSE 60
[2024-09-30 19:10] VITALS: BP 160/87; BP 180/85; PULSE 62; PULSE 64
[2024-09-30] MEDS: Meclizine HCl 25 MG TABLET PO (19:15)
[2024-09-30 20:11] VITALS: BP 180/85; PULSE 64; RESP 16; TEMP 36.9; O2SAT 97
== END 2024-09-30 20:11 | disposition home or self-care (01) ==
PROVIDERS: Physician Assistant Medical; Emergency Provider Emergency Medicine; PCP Nurse Practitioner Family
DX: R55 Syncope and collapse (principal); R42 Dizziness and giddiness; R07.89 Other chest pain; F17.210 Nicotine dependence, cigarettes, uncomplicated; F12.90 Cannabis use, unspecified, uncomplicated; Z03.818 Encounter for observation for suspected exposure to other biological agents ruled out
CPT/HCPCS: 0241U; 36415; 70496; 70498; 80048; 80076; 81001; 83735; 84484; 84702; 85025; 87086; 93005; 99284; Q9967

== ENCOUNTER → 2024-09-30 12:25 | Outpatient (BNV) | payer OTHER, SELFPAY | PROVIDERS: PCP Nurse Practitioner Family; Visit Provider Internal Medicine | DX: R42 Dizziness and giddiness (principal) | CPT/HCPCS: 93010 ==

== ENCOUNTER → 2024-10-15 09:05 | Outpatient (REF) | payer OTHER, SELFPAY ==
--- NOTE | 2024-10-15 09:07 | CA_ITS ---
Transthoracic Echocardiogram Patient (Last, First, Middle): Queenie Lombardo, Gender: Female Date of : 1980 Age: 43 Procedure Date: 10/15/2024 Procedure Type: Transthoracic Echocardiogram Location: OP Height: 165.1 cm Weight: 65.77 kg BSA: 1.73 m2 Heart Rate: bpm BP: 116 / 80 mmHg Physical Therapy Director: ALAYNA Referring MD: Aureliano Smith [facility] Symptoms: R07.89 - Other chest pain Study Quality: Good ECG Rhythm: Sinus Conclusions: - The left ventricular systolic function is normal. The calculated ejection fraction is 61% by biplane method. - No obvious valvular pathology seen on this study. Findings Left Ventricle Normal left ventricular cavity size. There is normal left ventricular wall thickness. The left ventricular systolic function is normal. The calculated ejection fraction is 61% by biplane method. There is no evidence of regional wall motion abnormalities. Diastolic function is normal for age. Right Ventricle Normal right ventricular cavity size and systolic function. Atria Both atria are normal in size. Aortic Valve There is a normal trileaflet aortic valve. There is no aortic valve stenosis. There is no aortic valve regurgitation. Mitral Valve The mitral valve appears normal. There is trace mitral valve regurgitation. There is no mitral valve stenosis. Pulmonic Valve The pulmonic valve is likely normal. Tricuspid Valve There is mild tricuspid valve regurgitation. There is no evidence of pulmonary hypertension. Great Vessels The asc aorta is normal in size. Venous The inferior vena cava is normal in size and collapses greater than 50% with inspiration. Pericardium/Pleural There is no evidence of pericardial effusion. Prior Study Comparison No prior study available for comparison. Recommendations, Care & Conclusions No obvious valvular pathology seen on this study. Measurements 2D Linear Measurements IVSd: 1.11 0.6-0.9/0.6-1.0 cm LVIDd: 4.21 3.9-5.3/4.2-5.9 cm LVIDd Index: 2.43 2.4-3.2/2.2-3.1 cm/m2 LVIDs: 2.46 2.0-3.6 cm LVPWd: 1.13 0.7-1.1 cm Ao Root: 2.60 2.1-3.5 cm LA Diam: 3.10 2.7-3.8/3.0-4.0 cm LAIDs Index: 1.79 1.5-2.3 cm/m2 LV Mass: 201.47 67-162/88-224 g LV Mass Index: 116.45 43-95/49-115 g/m2 LVOT Diam: 1.90 3.0+(-)1.3 cm 2D Systolic Function EF 4C: 57.30 >55% EF 2C: 64.50 >55% EF BiP: 60.70 >55% Mitral Valve MV Pk E: 0.74 MV PK A: 0.82 MV Decel Time: 176.00 E/A: 0.90 E'Lateral: 10.30 E'Medial: 4.46 E/E' Med: 16.60 E/E' Lat: 7.20 PHT: 52.00 MVA PHT: 4.23 Decel [place]: 4.20 Aortic Valve AoV Pk Kings: 1.56 AoV Mn Kings: 0.94 AoV VTI: 0.36 AoV Pk Grad: 10.00 Aov Mn Grad: 4.00 JEEVAN Cont.VTI: 2.03 LVOT LVOT Pk Kings: 1.29 LVOT Mn Knigs: 0.77 LVOT VTI: 0.26 LVOT Pk Grad: 7.00 LVOT Mn Grad: 3.00 LVOT Diam: 1.90 LVOT Area: 2.84 Diastolic Function MV Pk E: 0.74 MV Pk A: 0.82 E/A: 0.90 E'Medial: 4.46 E/E' Med: 16.60 E' Laterial: 10.30 E/E' Lat: 7.20 Right Ventricle TAPSE (mm): 27.00 TVS' Kings: 12.00 Tricuspid Valve TR Pk Kings: 2.09 TR Pk Grad: 17.00 RA Press: 3.00 RVSP: 20.00 Great Vessels Aorta Ao Root-2D: 2.60 2.0-3.7 cm Ao Asc: 2.60 2.1-3.4 cm Pulmonary Valve PV Pk Kings: 1.10 Peak PV Grad: 5.00 Updated in Other Vendor System with Status of Final Gerardo Escobar MD electronically signed on 10/15/2024 12:31:40 PM with status of Final
--- OUTSIDE RECORDS SUMMARY | 2024-10-15 09:41 | XMS_ITS | Clinical Summary ---
Author Organization [address] [facility] Address [address] [place] [address] Phone Care Team Providers Care Diagnostic Technologist Name Role Phone Alla Damon MD Primary Care Provider [phone] Encounters Date Type Department Care Team Description 09/20/2024 9:45 AM EDT Consult Orthopedic [facility] [address] [phone] Kory Sage DPM Nondisplaced spiral fracture of [...] Upcoming Encounters Date Type Department Care Team ([facility] st Contact Info) Description 11/20/2024 8:30 AM EDT Office Visit Orthopedic [facility] [address] [phone] Kory Sage DPM [address] [id number] Health Maintenance Due Date Last Done Comments [...] R esult from Last [address] [facility] Care Teams Diagnostic Technologist Relationship Specialty Start Date End Date Alla Damon MD [address] [place] [address] [place] [id number] PCP - General Internal Medicine 09/17/24
== END ==
LOC: HO.CARD 09:05
PROVIDERS: PCP Nurse Practitioner Family; Visit Provider Nurse Practitioner Family
DX: R07.89 Other chest pain (principal); R01.1 Cardiac murmur, unspecified
CPT/HCPCS: 93306

== ENCOUNTER → 2024-10-15 09:07 | Outpatient (BNV) | payer OTHER, SELFPAY | PROVIDERS: PCP Nurse Practitioner Family; Visit Provider Internal Medicine | DX: R07.89 Other chest pain (principal); I36.1 Nonrheumatic tricuspid (valve) insufficiency | CPT/HCPCS: 93306 ==

== ENCOUNTER 2025-01-29 15:21 | Outpatient (AMB) | payer OTHER, SELFPAY ==
--- NOTE | 2025-01-29 15:23 | A.OFFVIS_ITS ---
Vital Signs 01/29/25 15:24 Height 5 ft 5 in Weight 153 lb BMI 25.5 BP 140/78 H Blood Pressure Location Rt brachial Position Sitting Pulse 74 Pulse Source Pulse Oximeter Pulse Oximetry (%) 99 Oxygen Delivery Method Room Air Intake Visit Reasons: colo screening Intake Note: New pt for initial colo screening. CC: C.O. loose stools and nausea within the last few weeks. Pt reports she recently started a new myra-menopause supplement and she is unsure if that could be causing some of her symptoms or not. Pt denies any pertinent surgical or FMHx. 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 female with past medical history of anemia, and anxiety is here today for pre colonoscopy screening.? Patient was sent to us by her PCP.? This is her first colonoscopy screening.? Patient denies any gastrointestinal symptoms in the past or at present.? Denies any personal or family history of gastrointestinal disease, colon polyps, or CRC.? Denies history of difficulty with sedation or anesthesia in the past.? Negative for history of sleep apnea.? Denies any history of cardiac, renal, pulmonary, or hepatic disease.?? No history of infectious? diseases like hepatitis A, B, C, HIV or tuberculosis.? Patient is not on any anticoagulation [facility] Medical History Generalized anxiety disorder Right ovarian cyst Surgical History History of ovarian cystectomy History of left oophorectomy Family History Family/Other Breast cancer genetic susceptibility Mother Rheumatoid arthritis Asthma Father Hypertension Family/Other Breast cancer Social History Housing: House Alcohol intake: never Patient Tobacco Use Status: Never used Tobacco e-Cigarette/Vaping Use: Never Used Second Hand Smoke Exposure: No service: No Current occupational status: employed Current occupation: [employer] Current occupational exposures/hazards: No Gender identity: Female Cognitive needs: No Hearing needs: No Vision needs: No Female Reproductive History Menstrual Age of Menarche: 10 Review of Systems Const Denies weight gain and Denies weight loss ENT Reports no additional complaints, Denies dysphagia and Denies odynophagia Card Reports no additional complaints Resp Reports no additional complaints GI Denies abdominal pain, Denies belching, Denies melena, Denies bloating, Denies change in bowel habits, Denies dysphagia, Denies excessive flatus, Denies dyspepsia, Denies heartburn, Denies diarrhea, Denies loose stools, Denies nausea, Denies odynophagia and Denies vomiting Reports no additional complaints Musc Reports no additional complaints Neuro Reports no additional complaints Psych Reports no additional complaints Endo Reports no additional complaints Physical Exam Vital Signs: Last Vital Signs Pulse 74 01/29/25 15:24 BP 140/78 H 01/29/25 15:24 Pulse Ox 99 01/29/25 15:24 Oxygen Delivery Method Room Air 01/29/25 15:24 BMI result Body Mass Index 25.5 Const General: healthy appearing, no acute distress and well developed Nutritional Appearance: well nourished Orientation/consciousness: patient oriented x3 Resp Effort & Inspection: normal respiratory effort, able to speak in complete sentences, no tracheal deviation and symmetric chest movement Auscultation: clear to auscultation bilaterally Cardio Rate: regular rate GI Inspection: Yes normal to inspection and No distended Palpation (GI): Soft to palpation, not firm, nontender and No hepatosplenomegaly present Auscultation: normal bowel sounds General: Yes no CVA tenderness Back/Spine/Pelvis Back: no CVA tenderness Skin General skin exam: elasticity normal, turgor normal and dry skin Neuro General: patient oriented x3 Psych Appearance: grossly normal Mental Status: mental status grossly normal Assessment & Plan Assessment & Plan (1) Screening for colon cancer: Code(s): Z12.11 - Encounter for screening for malignant neoplasm of colon Category: Medical Plan Patient denies any GI, cardiac or respiratory symptoms.? Denies any issues with anesthesia in the past.? Denies any history of sleep apnea.? No history infectious diseases in the past or present.? Not on any anticoagulation therapy.? No family or personal history of colon cancer or polyps.? Patient denies melena, hematochezia, unintentional weight loss or ribbon like stools.? Discussed at length the pre-procedure,? prep, diet & medications as well as what to expect prior, during and after the procedure.?? Stressed the importance of good bowel prep.? Recommended the use of Vaseline or Calmoseptine OTC & baby wipes with bowel movements to promote comfort.? ?Patient verbalizes u nderstanding and agrees to plan of care.? She was given the opportunity to ask questions and all questions answered.? We will see her after the procedure.? Orders: Referrals GI Procedure Notification Z12.11 - Encounter for screening for malignant neoplasm of colon Medications: New bisacodyl (Dulcolax (bisacodyl)) take 4 tabs at noon the day before your colonoscopy 20 mg (4 x 5 mg) PO ONCE 4 tabs 0RF constipation 1 day Z12.11 - Encounter for screening for malignant neoplasm of colon polyethylene glycol 3350 (Miralax) As directed by gastroenterology department at [facility] 238 grams PO ONCE 238 grams 0RF Z12.11 - Encounter for screening for malignant neoplasm of colon Coding Level of Care Code New Pt Level 3 (40753) Diagnoses Screening for colon cancer Z12.11 Time Spent (min) 40 Comment 30 minutes spent with patient and additional 10 minutes spent reviewing her records
[2025-01-29 15:24] VITALS: BP 140/78; PULSE 74; O2SAT 99; BMI 25.5
--- OUTSIDE RECORDS SUMMARY | 2025-01-29 16:17 | XMS_ITS | Clinical Summary ---
Author Organization [address] [facility] Address [address] [place] [address] Phone Care Team Providers Care [place] Actor Name Role Phone Alla Damon MD Primary Care Provider [phone] Medications No known medications Encounters Date Type Department Care Team Description 01/08/2025 2:15 PM EDT Office Visit [facility] [address] [phone] Kory Sage DPM Closed nondisplaced spiral fracture of shaft of right fibula with routine healing (Primary Dx); Follow-up exam 11/20/2024 8:30 AM EDT Office Visit [facility] [address] [phone] Kory Sage DPM Closed nondisplaced spiral fracture of shaft of right fibula with routine healing (Primary Dx); Follow-up exam; Nondisplaced spiral fracture of shaft of right [...] Upcoming Encounters Date Type Department Care Team ([facility] Contact Info) Description 02/17/2025 3:00 PM EDT Office Visit [facility] [address] [phone] Kory Sage DPM [address] [phone] Health Maintenance Due Date Last Done Comments Breast Cancer Screening 1978 Hepatitis B Vaccines (1 of 3 - 19+ 3-dose series) 1997 Cervical Cancer Screening: P ap Smear 10/31/1999 DTaP,Tdap,and Td Vaccines (2 - Td or Tdap) 06/29/2022 06/29/2012 Depression Screening 05/01/2024 Colorectal Cancer Screening: Colonoscopy 09/17/2024 HIV Screening 09/17/2024 Hepatitis C Screening 09/17/2024 Social Influencers of Health Screening 09/17/2024 COVID-19 Vaccine ( - 2023-2 5 season) 2024 Influenza Vaccine (#1) 2024 RSV Immunization Adult Patie nts (1 - 1-dose 75+ series) 2053 HIB Vaccines Aged Out No longer eligi [...] 5 Years) and At-Risk Patients (6 to 49 Years) Aged Out No longer eligi ble [...] Comments XR ANKLE 3+ VIEWS RIGHT Routine 01/08/2025 2:45 PM EDT Follow-up exam XR ANKLE 3+ VIEWS RIGHT Routine 11/20/2024 8:46 AM EDT Follow-up exam from Last 3 Months Results * XR Ankle 3+ Views Right (01/08/2025 2:45 PM EDT) Only the most recent of2 resultswithin the time period is included. Anatomical Region Laterality Modality Lower Extremities, Ankle Right Compute d Radiography Narrative 01/08/2025 8:13 PM EDT Right ankle 3 views Trabeculation through fracture site noted stabilized ankle fracture right healing no acute findings with appropriate alignment us Kory Sage DPM IMG XR PROCEDURES Final R esult from Last 3 Months Insurance [facility] Care Teams [place] Actor Relationship Specialty Start Date End Date Alla Damon MD [address] [place] [address] [place] [address] PCP - General Internal Medicine 09/17/24
== END 2025-01-29 15:52 | disposition home or self-care (01) ==
LOC: HO.HGI 15:21
PROVIDERS: PCP Nurse Practitioner Family; Visit Provider Nurse Practitioner Family
DX: Z01.818 Encounter for other preprocedural examination (principal); Z12.11 Encounter for screening for malignant neoplasm of colon
CPT/HCPCS: 99203

== ENCOUNTER → 2025-01-29 15:21 | Outpatient (BNVA) | payer OTHER, SELFPAY | PROVIDERS: PCP Nurse Practitioner Family; Visit Provider Nurse Practitioner Family | DX: Z12.11 Encounter for screening for malignant neoplasm of colon (principal) | CPT/HCPCS: 99202 ==